=== PATIENT | male | born 1940 | race Caucasian/White ===

== ENCOUNTER 2019-12-27 17:49 | Inpatient (IN) ==
--- NOTE | 2019-12-27 19:56 | RAD ---
CHEST, 1 VIEWHISTORY: PneumothoraxStudy: Single view of the chest.Comparison:NoneFindings:Cardiomegaly.Dense consolidation of the near entirety of the left lung. Small right-sided pneumothorax. Osseous structures demonstrate no acute abnormality.IMPRESSION:1. Small right-sided pneumothorax.2. Dense consolidation of the left lung concerning for pneumonia.Electronically signed by: QIANA VELOZ (Dec 27, 2019 19:54:55)
[2019-12-27] MEDS ORDERED: PERCOCET TAB 5/325 MG PEG PRN (22:45)
[2019-12-27] MEDS ORDERED: SODIUM CHLORIDE 0.45% IV SCH (22:45)
[2019-12-27] MEDS ORDERED: [UNRECOGNIZED DRUG - OTHER] IV SCH (22:45)
[2019-12-27] MEDS ORDERED: ZOFRAN INJ 4 MG VIAL IV PRN (22:45)
[2019-12-27] MEDS ORDERED: VANCOMYCIN 1 GM IV SCH (22:45)
[2019-12-27] MEDS ORDERED: ALBUTEROL SULFATE 2.5 MG IN SCH (22:45)
[2019-12-27] MEDS ORDERED: PROTONIX INJ 40 MG VIAL IV SCH (23:00)
[2019-12-27] MEDS ORDERED: COREG TAB 3.125 MG PEG SCH (23:00)
[2019-12-27] MEDS ORDERED: COLACE SYRUP 100 MG UDC PEG SCH (23:00)
[2019-12-27] MEDS ORDERED: ALBUMIN HUMAN 25%- 100 ML 100 ML IV SCH (23:00)
[2019-12-27] MEDS: LACTOSE REDUCED FOOD WITH FIBR PEG SCH (23:00)
[2019-12-27] MEDS ORDERED: MAXIPIME VIAL 1 GRAM IV SCH (23:00)
[2019-12-27] MEDS ORDERED: ROBITUSSIN (PLAIN) PEG SCH (23:00)
[2019-12-27] MEDS: NS 1/2 1000 ML IV 1,000 ML IV SCH (23:00)
[2019-12-27] MEDS ORDERED: PULMICORT NEB TX 0.5 MG NEB SCH (23:00)
[2019-12-28] MEDS ORDERED: Atrovent NEB TX 0.02% IN SCH
[2019-12-28] MEDS: DUONEB 0.5 MG/3 MG (3 mL) NEB SCH ×4 (00:30→17:45)
[2019-12-28] MEDS: PERIDEX or PERIOGARD MT SCH ×4 (04:11→22:07)
[2019-12-28] MEDS ORDERED: ALBUMIN HUMAN 25%- 100 ML 100 ML ONE (04:38)
[2019-12-28] MEDS ORDERED: PROTONIX INJ 40 MG VIAL ONE (04:54)
[2019-12-28] MEDS ORDERED: MAXIPIME VIAL 1 GRAM ONE (04:54)
[2019-12-28] MEDS ORDERED: ROBITUSSIN (PLAIN) ONE (04:54)
[2019-12-28] MEDS ORDERED: DAKINS SOLUTION HALF STRENGTH 0.25% EXT PRN (05:41)
[2019-12-28] MEDS: PROTONIX INJ 40 MG VIAL IV SCH ×2 (05:42→20:44)
[2019-12-28] MEDS: MAXIPIME VIAL 1 GRAM IV SCH ×2 (05:42→20:38)
[2019-12-28] MEDS: ROBITUSSIN (PLAIN) PEG SCH ×3 (05:43→20:40)
[2019-12-28] MEDS: ALBUMIN HUMAN 25%- 100 ML 100 ML IV SCH ×2 (05:44→20:42)
[2019-12-28] MEDS: PROAMATINE PO SCH ×3 (05:47→22:07)
[2019-12-28 07:24] LABS: ALANINE AMINOTRANSFERASE 25 Units/L (12-78); ALBUMIN 1.3 g/dL (3.4-5.0); ALKALINE PHOSPHATASE 163 Units/L (46-116); ASPARTATE AMINO TRANSFERASE 32 Units/L (15-37); BLOOD UREA NITROGEN 112 mg/dL (7-18); CALCIUM 9.4 mg/dL (8.5-10.1); CARBON DIOXIDE 33.9 mmol/L (21-32); CHLORIDE 107 mmol/L (98-107); COR CA(FOR HYPOALB) 11.6 mg/dL (8.5-10.1); CREATININE 1.73 mg/dL (0.70-1.30); SODIUM 144 mmol/L (136-145); TOTAL PROTEIN 8.3 g/dL (6.4-8.2); eGFR NON BLACK RACES 41 (>60)
[2019-12-28 08:24] LABS: BASOPHILS % (AUTO) 0.3 % (0.2-1.0); EOSINOPHILS # (AUTO) 0.6 x10^3/uL (0.0-0.2); HEMATOCRIT 23.9 % (42.0-54.0); HEMOGLOBIN 7.5 g/dL (13.5-18.0); LYMPHOCYTES # (AUTO) 2.3 X10^3/uL (1.3-2.9); MEAN CORPUSCULAR HEMOGLOBIN 27.4 pg (27.0-34.0); MEAN CORPUSCULAR HGB CONC 31.5 g/dL (33.0-35.0); MEAN PLATELET VOLUME 10.2 fL (7.4-11.0); MONOCYTES # (AUTO) 0.7 x10^3/uL (0.3-0.8); MONOCYTES % (AUTO) 5.3 % (0.0-13.0); NEUTROPHILS % (AUTO) 71.4 % (42.0-75.0); PLATELET COUNT 303 X10^3/uL (150.0-450.0); RED BLOOD COUNT 2.74 X10^6/uL (4.7-6.0); RED CELL DISTRIBUTION WIDTH 20.4 % (11.6-16.5); WHITE BLOOD COUNT 12.6 X10^3/uL (3.6-10.0)
[2019-12-28 08:44] LABS: PLATELET MORPHOLOGY COMMENT NORMAL (NORMAL)
[2019-12-28 08:45] LABS: ANISOCYTOSIS 1+
[2019-12-28] MEDS: PULMICORT NEB TX 0.5 MG NEB SCH ×2 (08:56→23:38)
[2019-12-28] MEDS ORDERED: VANCOMYCIN HCL 1 G in D5W 250 ML IV 250 ML IV SCH (09:00)
[2019-12-28] MEDS ORDERED: DAKINS SOLUTION HALF STRENGTH 0.25% EXT SCH (09:00)
[2019-12-28] MEDS ORDERED: PHARMACY CONSULT - VANCOMYCIN XX SCH (09:00)
[2019-12-28] MEDS ORDERED: COREG TAB 3.125 MG PEG SCH ×2 (09:00→21:00)
[2019-12-28 09:05] LABS: CREATININE 1.82 mg/dL (0.70-1.30)
[2019-12-28 09:28] LABS: VANCOMYCIN,TROUGH 20.4 ug/mL (15-20)
--- NOTE | 2019-12-28 09:34 | RAD ---
HISTORYPneumothorax comparisonSTUDYPortable AP [id number]/24/2020FINDINGSHeart size remains enlarged although cardiac margins are partly obscured by extensive bilateral airspace disease. There is a persistent right-sided pneumothorax extending from apex to diaphragm and estimated at 15 percent. Associated right pleural fluid is present but no tension effect is seen.IMPRESSIONSlight apparent increase in size of right pneumothorax and pleural effusion. Persistent cardiomegaly and bilateral pulmonary infiltrates/pneumonia.Electronically signed by: RICARDO VEGA (Dec 28, 2019 09:33:15)
--- NOTE | 2019-12-28 10:10 | DR.PROGNOT ---
Hospital Progress Notes - Progress Note for Day of: Progress Note Date: 12/28/19 - Chief Complaint Chief Complaint: Pt is alert and cooperative .. respirator and feeding tube dependent . chest xray showed small Rt pneumothorax and Lt lung pneumonia . - Past Medical Family Social History Past Med/Fam/Surg Hx: No changes since H&P Allergies: Allergies black pepper Allergy (Verified 12/27/19 20:37) cephalexin Allergy (Verified 12/27/19 20:37) egg Allergy (Verified 12/27/19 20:37) metoclopramide [From Reglan] Allergy (Verified 12/27/19 20:37) Penicillins Allergy (Verified 12/27/19 20:37) Sulfa (Sulfonamide Antibiotics) [SULFA] Allergy (Verified 12/27/19 20:37) Strong Spices Allergy (Uncoded 12/27/19 20:37) Lactose Intolerance Adverse Reaction (Uncoded 12/27/19 20:37) - Vital Signs Vital Signs: Temperature 98 F Pulse Rate [Brachial] 99 Pulse Rate 100 Respiratory Rate 20 Blood Pressure [Left Arm] 101/58 O2 Sat by Pulse Oximetry 100 - Physical Exam Oriented: Normal Eyes: Normal Ear: Normal Nose: Normal Respiratory: Left (diminished BS on Lt and Rt ), OTHER (on respirator using tracheostomy .) Speech Pattern: Artificially Ventilated - Laboratory and Diagnostics Result Diagrams: 12/28/19 05:46 12/28/19 08:08 Labs: Laboratory WBC 12.6 X10^3/uL (3.6-10.0) H 12/28/19 05:46 RBC 2.74 X10^6/uL (4.7-6.0) L 12/28/19 05:46 Hgb 7.5 g/dL (13.5-18.0) L 12/28/19 05:46 Hct 23.9 % (42.0-54.0) L 12/28/19 05:46 MCV 87.0 fL (80.0-100.0) 12/28/19 05:46 MCH 27.4 pg (27.0-34.0) 12/28/19 05:46 MCHC 31.5 g/dL (33.0-35.0) L 12/28/19 05:46 RDW 20.4 % (11.6-16.5) H 12/28/19 05:46 Plt Count 303 X10^3/uL (150.0-450.0) 12/28/19 05:46 Plt Count Comment Adequate (ADEQUATE) 12/28/19 05:46 MPV 10.2 fL (7.4-11.0) 12/28/19 05:46 Neut % (Auto) 71.4 % (42.0-75.0) 12/28/19 05:46 Lymph % (Auto) 18.0 % (21.0-51.0) L 12/28/19 05:46 [place] % (Auto) 5.3 % (0.0-13.0) 12/28/19 05:46 Eos % (Auto) 5.0 % (0.9-2.9) H 12/28/19 05:46 Baso % (Auto) 0.3 % (0.2-1.0) 12/28/19 05:46 Neut # (Auto) 9.0 x10^3/uL (2.2-4.8) H 12/28/19 05:46 Lymph # (Auto) 2.3 X10^3/uL (1.3-2.9) 12/28/19 05:46 [place] # (Auto) 0.7 x10^3/uL (0.3-0.8) 12/28/19 05:46 Eos # (Auto) 0.6 x10^3/uL (0.0-0.2) H 12/28/19 05:46 Baso # (Auto) 0.0 X10^3/uL (0.0-0.1) 12/28/19 05:46 Absolute Nucleated RBC 0.1 /100WBC 12/28/19 05:46 Plt Morphology Comment Normal (NORMAL) 12/28/19 05:46 RBC Morphology Abnormal (NORMAL) 12/28/19 05:46 Anisocytosis 1+ A 12/28/19 05:46 Sodium 144 mmol/L (136-145) 12/28/19 05:46 Corrected Sodium TNP 12/28/19 05:46 Potassium 4.4 mmol/L (3.5-5.1) 12/28/19 05:46 Chloride 107 mmol/L (98-107) 12/28/19 05:46 Carbon Dioxide 33.9 mmol/L (21-32) H 12/28/19 05:46 BUN 112 mg/dL (7-18) H 12/28/19 05:46 Creatinine 1.82 mg/dL (0.70-1.30) H 12/28/19 08:08 Est GFR (MDRD) Af Amer 49 (>60) L 12/28/19 05:46 Est GFR (MDRD) Non-Af 41 (>60) L 12/28/19 05:46 Glucose 82 mg/dL (65-99) 12/28/19 05:46 Calcium 9.4 mg/dL (8.5-10.1) 12/28/19 05:46 Corrected Calcium 11.6 mg/dL (8.5-10.1) H 12/28/19 05:46 Total Bilirubin 0.40 mg/dL (0.2-1.0) 12/28/19 05:46 AST 32 Units/L (15-37) 12/28/19 05:46 ALT 25 Units/L (12-78) 12/28/19 05:46 Alkaline Phosphatase 163 Units/L (46-116) H 12/28/19 05:46 Total Protein 8.3 g/dL (6.4-8.2) H 12/28/19 05:46 Albumin 1.3 g/dL (3.4-5.0) L 12/28/19 05:46 Globulin 7.0 g/dL (2.5-4.5) H 12/28/19 05:46 Albumin/Globulin Ratio 0.2 Ratio (1.1-2.1) L 12/28/19 05:46 Vancomycin Trough 20.4 ug/mL (15-20) H* 12/28/19 08:08 - Assessment and Plan 1: small Rt pneumothorax . Lt pneumonia . chronic anemia ,. CKD . h/o DVT . esophageal ca with stricture . malnutrition . to repeat chest xray and same plan of nutritional support , IV ATB, DVT prophylaxis
[2019-12-28] MEDS ORDERED: NS 100 ML IV + SPIKE MINIBAG* 100 ML IV ONE (11:07)
[2019-12-28] MEDS: ASPIRIN 81 MG CHEWTAB PEG SCH (11:30)
[2019-12-28] MEDS: AMINO ACIDS PROTEIN HYDROLYS PEG SCH ×2 (11:30→20:44)
[2019-12-28] MEDS: LACTOSE REDUCED FOOD WITH FIBR PEG SCH ×2 (11:30→23:40)
[2019-12-28 12:58] VITALS: BMI 18.7
[2019-12-28] MEDS ORDERED: COREG TAB 3.125 MG PEG STA (13:50)
[2019-12-28] MEDS: VANCOMYCIN HCL 750 MG in NS 250 ML IV 250 ML IV SCH (14:09)
[2019-12-28] MEDS: COLACE SYRUP 100 MG UDC PEG SCH ×2 (14:11→20:41)
[2019-12-28] MEDS: ARGININE GLUTAMINE CALCIUM HMB PEG SCH ×2 (14:12→20:45)
[2019-12-28] MEDS ORDERED: NS 250 ML IV 250 ML IV ONE (14:28)
[2019-12-28 14:46] LABS: IRON 24 ug/dL (50-175)
[2019-12-28] MEDS ORDERED: COREG TAB 3.125 MG ONE (19:46)
[2019-12-28] MEDS: NS 1/2 1000 ML IV 1,000 ML IV SCH (22:06)
[2019-12-29] MEDS: ROBITUSSIN (PLAIN) PEG SCH ×4 (00:35→17:45)
[2019-12-29] MEDS: PERIDEX or PERIOGARD MT SCH ×7 (01:26→21:21)
[2019-12-29] MEDS: NS 1/2 1000 ML IV 1,000 ML IV SCH ×3 (01:27→17:45)
[2019-12-29] MEDS ORDERED: NS 500 ML IV 500 ML IV ONE (01:51)
[2019-12-29] MEDS: DUONEB 0.5 MG/3 MG (3 mL) NEB SCH ×4 (06:10→18:07)
[2019-12-29 06:21] LABS: BASOPHILS % (AUTO) 0.3 % (0.2-1.0); EOSINOPHILS # (AUTO) 0.7 x10^3/uL (0.0-0.2); EOSINOPHILS % (AUTO) 6.2 % (0.9-2.9); HEMATOCRIT 27.7 % (42.0-54.0); HEMOGLOBIN 9.1 g/dL (13.5-18.0); LYMPHOCYTES # (AUTO) 1.6 X10^3/uL (1.3-2.9); LYMPHOCYTES % (AUTO) 15.2 % (21.0-51.0); MEAN CORPUSCULAR HEMOGLOBIN 28.9 pg (27.0-34.0); MEAN CORPUSCULAR HGB CONC 32.8 g/dL (33.0-35.0); MEAN CORPUSCULAR VOLUME 87.9 fL (80.0-100.0); MEAN PLATELET VOLUME 9.8 fL (7.4-11.0); MONOCYTES # (AUTO) 0.6 x10^3/uL (0.3-0.8); MONOCYTES % (AUTO) 5.8 % (0.0-13.0); NEUTROPHILS # (AUTO) 7.7 x10^3/uL (2.2-4.8); NEUTROPHILS % (AUTO) 72.5 % (42.0-75.0); PLATELET COUNT 247 X10^3/uL (150.0-450.0); RED BLOOD COUNT 3.16 X10^6/uL (4.7-6.0); RED CELL DISTRIBUTION WIDTH 17.9 % (11.6-16.5); WHITE BLOOD COUNT 10.6 X10^3/uL (3.6-10.0)
[2019-12-29] MEDS: PROAMATINE PO SCH ×3 (06:34→21:29)
[2019-12-29 06:38] LABS: ALBUMIN 1.9 g/dL (3.4-5.0); CALCIUM 8.9 mg/dL (8.5-10.1); CARBON DIOXIDE 33.8 mmol/L (21-32); COR CA(FOR HYPOALB) 10.6 mg/dL (8.5-10.1); CREATININE 1.83 mg/dL (0.70-1.30); MAGNESIUM 1.6 mg/dL (1.7-2.9); TOTAL PROTEIN 8.3 g/dL (6.4-8.2)
--- NOTE | 2019-12-29 07:57 | RAD ---
HISTORYEVAL PNEUMOTHORAXSTUDYCHEST, 1 [id number]/25/2020FINDINGSThe trachea is midline. The cardiac silhouette is stable. Tracheostomy unchanged. Similar small right pleural effusion.. Similar bilateral airspace opacities and effusions.. The bony thorax intact..IMPRESSIONStable small right pneumothorax.Similar bilateral airspace opacities and effusions.Electronically signed by: DIA ELISE (Dec 29, 2019 07:56:32)
[2019-12-29] MEDS ORDERED: NS 100 ML IV 100 ML with VENOFER 200 MG IV NR ×2 (07:58)
[2019-12-29] MEDS ORDERED: NS 100 ML IV + SPIKE MINIBAG* 0 ML IV ONE (09:05)
[2019-12-29] MEDS: ALBUMIN HUMAN 25%- 100 ML 100 ML IV SCH ×2 (09:13→20:53)
[2019-12-29] MEDS: AMINO ACIDS PROTEIN HYDROLYS PEG SCH ×2 (09:13→20:54)
--- NOTE | 2019-12-29 09:14 | DR.PROGNOT ---
Hospital Progress Notes - Progress Note for Day of: Progress Note Date: 12/29/19 - Chief Complaint Chief Complaint: tracheostomy tube was changed with improvement of saturation . seems to be stable today . chest Xray is the same with small Rt pneumothorax and Lt pneumonia . - Past Medical Family Social History Past Med/Fam/Surg Hx: No changes since H&P Allergies: Allergies black pepper Allergy (Verified 12/27/19 20:37) cephalexin Allergy (Verified 12/27/19 20:37) egg Allergy (Verified 12/27/19 20:37) metoclopramide [From Reglan] Allergy (Verified 12/27/19 20:37) Penicillins Allergy (Verified 12/27/19 20:37) Sulfa (Sulfonamide Antibiotics) [SULFA] Allergy (Verified 12/27/19 20:37) Strong Spices Allergy (Uncoded 12/27/19 20:37) Lactose Intolerance Adverse Reaction (Uncoded 12/27/19 20:37) - Vital Signs Vital Signs: Temperature 98.0 F Pulse Rate [Brachial] 98 Pulse Rate 88 Respiratory Rate 20 Blood Pressure [Left Arm] 125/72 O2 Sat by Pulse Oximetry 96 - Physical Exam Oriented: Normal Eyes: Normal Ear: Normal Nose: Normal Respiratory: Left (diminished BS on Lt and Rt ), OTHER (on respirator using tracheostomy .) Speech Pattern: Trach(not ventilated) - Laboratory and Diagnostics Result Diagrams: 12/29/19 05:50 12/29/19 05:50 Labs: 12/28/19 20:48 Sputum - Endotracheal Wash - Final Laboratory WBC 10.6 X10^3/uL (3.6-10.0) H 12/29/19 05:50 RBC 3.16 X10^6/uL (4.7-6.0) L 12/29/19 05:50 Hgb 9.1 g/dL (13.5-18.0) L 12/29/19 05:50 Hct 27.7 % (42.0-54.0) L 12/29/19 05:50 MCV 87.9 fL (80.0-100.0) 12/29/19 05:50 MCH 28.9 pg (27.0-34.0) 12/29/19 05:50 MCHC 32.8 g/dL (33.0-35.0) L 12/29/19 05:50 RDW 17.9 % (11.6-16.5) H 12/29/19 05:50 Plt Count 247 X10^3/uL (150.0-450.0) 12/29/19 05:50 Plt Count Comment Adequate (ADEQUATE) 12/28/19 05:46 MPV 9.8 fL (7.4-11.0) 12/29/19 05:50 Neut % (Auto) 72.5 % (42.0-75.0) 12/29/19 05:50 Lymph % (Auto) 15.2 % (21.0-51.0) L 12/29/19 05:50 [place] % (Auto) 5.8 % (0.0-13.0) 12/29/19 05:50 Eos % (Auto) 6.2 % (0.9-2.9) H 12/29/19 05:50 Baso % (Auto) 0.3 % (0.2-1.0) 12/29/19 05:50 Neut # (Auto) 7.7 x10^3/uL (2.2-4.8) H 12/29/19 05:50 Lymph # (Auto) 1.6 X10^3/uL (1.3-2.9) 12/29/19 05:50 [place] # (Auto) 0.6 x10^3/uL (0.3-0.8) 12/29/19 05:50 Eos # (Auto) 0.7 x10^3/uL (0.0-0.2) H 12/29/19 05:50 Baso # (Auto) 0.0 X10^3/uL (0.0-0.1) 12/29/19 05:50 Absolute Nucleated RBC 0.1 /100WBC 12/29/19 05:50 Plt Morphology Comment Normal (NORMAL) 12/28/19 05:46 RBC Morphology Abnormal (NORMAL) 12/28/19 05:46 Anisocytosis 1+ A 12/28/19 05:46 Sodium 143 mmol/L (136-145) 12/29/19 05:50 Corrected Sodium 144 mmol/L (136-145) 12/29/19 05:50 Potassium 4.4 mmol/L (3.5-5.1) 12/29/19 05:50 Chloride 105 mmol/L (98-107) 12/29/19 05:50 Carbon Dioxide 33.8 mmol/L (21-32) H 12/29/19 05:50 BUN 114 mg/dL (7-18) H 12/29/19 05:50 Creatinine 1.83 mg/dL (0.70-1.30) H 12/29/19 05:50 Est GFR (MDRD) Af Amer 46 (>60) L 12/29/19 05:50 Est GFR (MDRD) Non-Af 38 (>60) L 12/29/19 05:50 Glucose 142 mg/dL (65-99) H 12/29/19 05:50 Calcium 8.9 mg/dL (8.5-10.1) 12/29/19 05:50 Corrected Calcium 10.6 mg/dL (8.5-10.1) H 12/29/19 05:50 Magnesium 1.6 mg/dL (1.7-2.9) L 12/29/19 05:50 Iron 24 ug/dL (50-175) L 12/28/19 13:53 Transferrin 135 mg/dL (202-364) L 12/28/19 13:53 Ferritin 413 ng/mL (26-388) H 12/28/19 13:53 Total Bilirubin 0.60 mg/dL (0.2-1.0) 12/29/19 05:50 AST 23 Units/L (15-37) 12/29/19 05:50 ALT 21 Units/L (12-78) 12/29/19 05:50 Alkaline Phosphatase 170 Units/L (46-116) H 12/29/19 05:50 Total Protein 8.3 g/dL (6.4-8.2) H 12/29/19 05:50 Albumin 1.9 g/dL (3.4-5.0) L 12/29/19 05:50 Globulin 6.4 g/dL (2.5-4.5) H 12/29/19 05:50 Albumin/Globulin Ratio 0.3 Ratio (1.1-2.1) L 12/29/19 05:50 Vitamin B12 1258 pg/mL (193-986) H 12/28/19 13:53 Folate > 20.0 ng/mL (>8.6) 12/28/19 13:53 Vancomycin Trough 20.4 ug/mL (15-20) H* 12/28/19 08:08 Blood Type O NEGATIVE 12/28/19 09:30 Antibody Screen Negative 12/28/19 09:30 Crossmatch See Detail 12/28/19 09:30 - Assessment and Plan 1: small Rt pneumothorax . Lt pneumonia . chronic anemia ,. CKD . h/o DVT . esophageal ca with stricture . malnutrition . to repeat chest xray and same tube feeding , IV ATB, DVT prophylaxis. no need for chest tube now .
[2019-12-29] MEDS: ARGININE GLUTAMINE CALCIUM HMB PEG SCH ×2 (09:15→20:54)
[2019-12-29] MEDS: ASPIRIN 81 MG CHEWTAB PEG SCH (09:15)
[2019-12-29] MEDS: COREG TAB 12.5 MG PO SCH ×4 (09:18→20:41)
[2019-12-29] MEDS: VANCOMYCIN HCL 750 MG in NS 250 ML IV 250 ML IV SCH (09:19)
[2019-12-29] MEDS: PROTONIX INJ 40 MG VIAL IV SCH ×2 (09:19→20:41)
[2019-12-29] MEDS: COLACE SYRUP 100 MG UDC PEG SCH ×2 (09:24→20:40)
[2019-12-29] MEDS: PULMICORT NEB TX 0.5 MG NEB SCH ×2 (09:30→22:35)
[2019-12-29] MEDS: LACTOSE REDUCED FOOD WITH FIBR PEG SCH ×2 (10:57→22:58)
[2019-12-29] MEDS ORDERED: NS 1/2 1000 ML IV 1,000 ML IV ONE (17:41)
[2019-12-29] MEDS: MAXIPIME VIAL 1 GRAM 1 G in NS 50 ML IV + SPIKE MINIBAG* 50 ML IV SCH (20:39)
[2019-12-30] MEDS ORDERED: ROBITUSSIN DM ONE (00:15)
[2019-12-30] MEDS: ROBITUSSIN (PLAIN) PEG SCH ×4 (00:28→17:46)
[2019-12-30] MEDS: DUONEB 0.5 MG/3 MG (3 mL) NEB SCH ×4 (00:45→18:22)
[2019-12-30] MEDS: PERIDEX or PERIOGARD MT SCH ×6 (02:30→21:11)
[2019-12-30] MEDS ORDERED: ROBITUSSIN (PLAIN) ONE ×2 (03:57→03:58)
[2019-12-30] MEDS: NS 1/2 1000 ML IV 1,000 ML IV SCH (04:36)
[2019-12-30] MEDS: PROAMATINE PO SCH ×3 (05:17→21:09)
--- NOTE | 2019-12-30 06:15 | RAD ---
HISTORYFollow-up pneumothoraxSTUDYChest AP [id number]/26/2020FINDINGSThere is a tracheostomy tube in good position. Heart remains enla rged. There is a small right pneumothorax unchanged from the prior examination. Bilateral pleural e ffusions are unchanged. Right basilar and left perihilar infiltrate unchanged. Bony thorax is unremar kable.IMPRESSIONNo change right pneumothoraxNo change cardiomegaly without congestive heart failureNo change right basilar left perihilar infiltrates and bilateral pleural effusions right greater than l eftElectronically signed by: DIA ELISE (Dec 30, 2019 06:14:18)
[2019-12-30 06:38] LABS: BASOPHILS # (AUTO) 0.1 X10^3/uL (0.0-0.1); BASOPHILS % (AUTO) 0.4 % (0.2-1.0); EOSINOPHILS # (AUTO) 0.7 x10^3/uL (0.0-0.2); EOSINOPHILS % (AUTO) 6.4 % (0.9-2.9); HEMATOCRIT 26.5 % (42.0-54.0); HEMOGLOBIN 8.6 g/dL (13.5-18.0); LYMPHOCYTES # (AUTO) 1.9 X10^3/uL (1.3-2.9); LYMPHOCYTES % (AUTO) 16.3 % (21.0-51.0); MEAN CORPUSCULAR HEMOGLOBIN 28.6 pg (27.0-34.0); MEAN CORPUSCULAR HGB CONC 32.5 g/dL (33.0-35.0); MEAN PLATELET VOLUME 9.5 fL (7.4-11.0); MONOCYTES # (AUTO) 0.6 x10^3/uL (0.3-0.8); MONOCYTES % (AUTO) 5.3 % (0.0-13.0); NEUTROPHILS # (AUTO) 8.3 x10^3/uL (2.2-4.8); NEUTROPHILS % (AUTO) 71.6 % (42.0-75.0); PLATELET COUNT 226 X10^3/uL (150.0-450.0); RED BLOOD COUNT 3.01 X10^6/uL (4.7-6.0); RED CELL DISTRIBUTION WIDTH 17.7 % (11.6-16.5); WHITE BLOOD COUNT 11.6 X10^3/uL (3.6-10.0)
[2019-12-30 06:54] LABS: ALBUMIN 2.3 g/dL (3.4-5.0); CALCIUM 9.2 mg/dL (8.5-10.1); CARBON DIOXIDE 31.8 mmol/L (21-32); COR CA(FOR HYPOALB) 10.6 mg/dL (8.5-10.1); CREATININE 1.85 mg/dL (0.70-1.30)
[2019-12-30 07:33] LABS: PLATELET MORPHOLOGY COMMENT NORMAL (NORMAL)
[2019-12-30] MEDS ORDERED: PROCRIT or EPOGEN VIAL 20,000 UNITS SC SCH ×2 (07:58→09:00)
[2019-12-30] MEDS ORDERED: LR 1000 ML IV 1,000 ML IV ONE (08:53)
[2019-12-30] MEDS: COREG TAB 12.5 MG PO SCH ×2 (08:55→21:09)
[2019-12-30] MEDS: COLACE SYRUP 100 MG UDC PEG SCH ×2 (08:55→21:09)
[2019-12-30] MEDS: ASPIRIN 81 MG CHEWTAB PEG SCH (08:55)
[2019-12-30] MEDS: MAXIPIME VIAL 1 GRAM 1 G in NS 50 ML IV + SPIKE MINIBAG* 50 ML IV SCH ×2 (08:55→21:57)
[2019-12-30] MEDS: ALBUMIN HUMAN 25%- 100 ML 100 ML IV SCH ×2 (08:57→21:07)
[2019-12-30] MEDS: AMINO ACIDS PROTEIN HYDROLYS PEG SCH ×2 (08:58→21:08)
[2019-12-30] MEDS ORDERED: ALTACE 2.5 MG CAP PO SCH (09:00)
[2019-12-30] MEDS: ARGININE GLUTAMINE CALCIUM HMB PEG SCH ×2 (09:01→21:08)
[2019-12-30] MEDS: PROTONIX INJ 40 MG VIAL IV SCH ×2 (09:02→21:09)
[2019-12-30] MEDS: VANCOMYCIN HCL 750 MG in NS 250 ML IV 250 ML IV SCH (09:08)
[2019-12-30] MEDS: PULMICORT NEB TX 0.5 MG NEB SCH ×2 (09:15→22:12)
[2019-12-30] MEDS ORDERED: PHARMACY CONSULT LTC MEDICATIONS XX SCH (10:00)
[2019-12-30] MEDS: LOVENOX INJ 40 MG SYR SC SCH (11:36)
[2019-12-30] MEDS: LACTOSE REDUCED FOOD WITH FIBR PEG SCH ×2 (11:37→21:57)
[2019-12-30] MEDS: ZESTRIL TAB 5 MG PO SCH (11:37)
[2019-12-30] MEDS: LR 1000 ML IV 1,000 ML IV SCH ×3 (14:20→21:57)
[2019-12-31] MEDS: DUONEB 0.5 MG/3 MG (3 mL) NEB SCH ×5 (00:06→17:28)
[2019-12-31] MEDS: ROBITUSSIN (PLAIN) PEG SCH ×4 (01:00→17:31)
[2019-12-31] MEDS: PERIDEX or PERIOGARD MT SCH ×6 (01:17→22:00)
[2019-12-31] MEDS: LR 1000 ML IV 1,000 ML IV SCH ×3 (05:28→18:20)
[2019-12-31] MEDS: PROAMATINE PO SCH ×3 (05:30→22:00)
[2019-12-31 06:32] LABS: BASOPHILS % (AUTO) 0.3 % (0.2-1.0); EOSINOPHILS # (AUTO) 0.6 x10^3/uL (0.0-0.2); EOSINOPHILS % (AUTO) 4.2 % (0.9-2.9); HEMATOCRIT 25.5 % (42.0-54.0); HEMOGLOBIN 8.3 g/dL (13.5-18.0); LYMPHOCYTES # (AUTO) 1.7 X10^3/uL (1.3-2.9); LYMPHOCYTES % (AUTO) 12.7 % (21.0-51.0); MEAN CORPUSCULAR HEMOGLOBIN 28.5 pg (27.0-34.0); MEAN CORPUSCULAR HGB CONC 32.4 g/dL (33.0-35.0); MEAN CORPUSCULAR VOLUME 87.8 fL (80.0-100.0); MEAN PLATELET VOLUME 9.4 fL (7.4-11.0); MONOCYTES # (AUTO) 0.8 x10^3/uL (0.3-0.8); MONOCYTES % (AUTO) 5.9 % (0.0-13.0); NEUTROPHILS # (AUTO) 10.3 x10^3/uL (2.2-4.8); NEUTROPHILS % (AUTO) 76.9 % (42.0-75.0); PLATELET COUNT 211 X10^3/uL (150.0-450.0); RED BLOOD COUNT 2.91 X10^6/uL (4.7-6.0); RED CELL DISTRIBUTION WIDTH 17.9 % (11.6-16.5); WHITE BLOOD COUNT 13.4 X10^3/uL (3.6-10.0)
[2019-12-31 06:56] LABS: ALBUMIN 2.5 g/dL (3.4-5.0); CALCIUM 8.6 mg/dL (8.5-10.1); CARBON DIOXIDE 28.9 mmol/L (21-32); COR CA(FOR HYPOALB) 9.8 mg/dL (8.5-10.1); CREATININE 1.71 mg/dL (0.70-1.30)
[2019-12-31 07:17] LABS: PLATELET MORPHOLOGY COMMENT NORMAL (NORMAL)
[2019-12-31 07:18] LABS: ANISOCYTOSIS 1+; HYPOCHROMASIA SLIGHT
[2019-12-31] MEDS: PULMICORT NEB TX 0.5 MG NEB SCH ×2 (08:05→21:19)
[2019-12-31] MEDS ORDERED: PHARMACY COMMENT IV NR (08:30)
[2019-12-31] MEDS: MAXIPIME VIAL 1 GRAM 1 G in NS 50 ML IV + SPIKE MINIBAG* 50 ML IV SCH ×2 (08:43→21:58)
[2019-12-31] MEDS: COLACE SYRUP 100 MG UDC PEG SCH ×2 (08:43→21:59)
[2019-12-31] MEDS: ASPIRIN 81 MG CHEWTAB PEG SCH (08:45)
[2019-12-31] MEDS: ZESTRIL TAB 5 MG PO SCH (08:45)
[2019-12-31] MEDS: COREG TAB 12.5 MG PO SCH ×2 (08:45→21:59)
[2019-12-31] MEDS: AMINO ACIDS PROTEIN HYDROLYS PEG SCH ×2 (08:46→21:59)
[2019-12-31] MEDS: ARGININE GLUTAMINE CALCIUM HMB PEG SCH ×2 (08:47→22:00)
[2019-12-31] MEDS: LOVENOX INJ 40 MG SYR SC SCH (08:49)
[2019-12-31] MEDS: PROTONIX INJ 40 MG VIAL IV SCH ×2 (08:50→21:58)
[2019-12-31 09:03] LABS: CREATININE 1.7 mg/dL (0.70-1.30)
[2019-12-31 09:12] LABS: VANCOMYCIN,TROUGH 26.5 ug/mL (15-20)
[2019-12-31] MEDS: ALBUMIN HUMAN 25%- 100 ML 100 ML IV SCH ×2 (09:30→21:00)
--- NOTE | 2019-12-31 10:31 | RAD ---
HISTORYINCREASING RESPIRATORY RATESTUDYPortable AP chestCOMPARISONYesterday December 29FINDINGSThere is a tiny right pneumothorax decreasing in size. A transtracheal tube remains in place. There is unchanged moderate cardiomegaly with bilateral moderate pleural effusions. There is a right perihilar infiltrate that appears more severe and an unchanged left perihilar infiltrate.IMPRESSION1. Decreasing size of small right pneumothorax2. No significant change of mild to moderately large bilateral pleural effusions3. Increased severity of a right perihilar and lower lobe pneumonia and unchanged left perihilar pneumoniaElectronically signed by: ANDREEA JESSICA (Dec 31, 2019 10:30:05)
[2019-12-31] MEDS: LACTOSE REDUCED FOOD WITH FIBR PEG SCH ×2 (11:25→22:50)
[2019-12-31] MEDS: VANCOMYCIN HCL 750 MG in NS 250 ML IV 250 ML IV SCH (11:39)
[2019-12-31] MEDS ORDERED: DIFLUCAN 200 MG IV PREMIX* 400 MG/200 ML BAG IV SCH (12:00)
--- NOTE | 2019-12-31 14:06 | RAD ---
HISTORYPost thoracentesisSTUDYChest AP [id number]/2020FINDINGSThere is a tracheostomy tube in good position. Heart size difficu lt to assess due to obscuration of the left heart border by left lung infiltrates. There is also incr eased density in the retrocardiac area of the left lower lobe which could be on the basis of atelecta sis, infiltrate effusion or combination. There has been a significant increase in the size of the pat ient's right pneumothorax now visualized in the apex along the right lateral chest wall and medially along the mediastinum. This is likely at least a 30 to 40 percent pneumothorax. Clinical correlation should determine the need for chest tube therapy. Right basilar lung infiltrate is unchanged. Previou sly noted right pleural effusion has markedly decreased status post thoracentesis.IMPRESSIONSignifica nt increase in the size of the patient's right pneumothorax status post right thoracentesis now appro ximately 30-40 percent. Clinical correlation should determine the need for chest tube therapy.Decreas ed right pleural effusion status post thoracentesisNo change left lung infiltrates and left retrocard iac density as described aboveElectronically signed by: DIA ELISE (Dec 31, 2019 14:04:58)
[2019-12-31 15:21] LABS: TOT VOL 1100 mL
[2019-12-31 15:38] LABS: GLUCOSE,PLEURAL FLUID 134
[2020-01-01] MEDS: DUONEB 0.5 MG/3 MG (3 mL) NEB SCH (00:13)
[2020-01-01] MEDS: ROBITUSSIN (PLAIN) PEG SCH (00:52)
[2020-01-01] MEDS: LR 1000 ML IV 1,000 ML IV SCH (00:52)
[2020-01-01] MEDS: PERIDEX or PERIOGARD MT SCH (01:03)
[2020-01-01 03:15] VITALS: BP 56/29
[2020-01-01] MEDS ORDERED: PHARMACY COMMENT IV NR (08:30)
[2020-01-01] MEDS ORDERED: VANCOMYCIN HCL 500 MG in NS 100 ML IV 100 ML IV SCH (09:00)
[2020-01-04] MEDS ORDERED: PHARMACY COMMENT IV NR (08:30)
== END 2020-01-01 05:40 | disposition expired | DRG 199 ==
LOC: MED/SURG 19:26
PROVIDERS: ADMIT Obstetrics & Gynecology Obstetrics; ATTEND Obstetrics & Gynecology Obstetrics
DX: J93.83 Other pneumothorax; Z43.0 Encounter for attention to tracheostomy; I50.9 Heart failure, unspecified; J96.10 Chronic respiratory failure, unspecified whether with hypoxia or hypercapnia; Z43.1 Encounter for attention to gastrostomy; J15.1 Pneumonia due to Pseudomonas; J15.212 Pneumonia due to Methicillin resistant Staphylococcus aureus; N18.9 Chronic kidney disease, unspecified; Z66 Do not resuscitate; Z85.01 Personal history of malignant neoplasm of esophagus; I25.10 Atherosclerotic heart disease of native coronary artery without angina pectoris; I46.9 Cardiac arrest, cause unspecified
CPT/HCPCS: 36415; 71010; 71045; 80053; 80202; 82565; 82607; 82728; 82746; 83540; 83615; 83735; 83986; 84157; 84466; 85025; 86850; 86900; 86901; 86922; 87070; 87077; 87186; 87205; 89051; 94002; 94003; 94640; 94762; 97163; 97167; A4222; A4618; C9113; J0692; J0885; J1450; J1650; J1756; J3370; J7040; J7050; J7120; J7620; J7626; P9016; P9047